=== PATIENT | female | born 1945 | race Caucasian/White ===

== ENCOUNTER 2016-10-01 20:13 | Emergency (ER) | payer MEDICARE ==
[~2016-10-01 20:13] MED LIST: ALFALFA PO; ASA CHILDREN'S81 MG PO; B COMPLEX1 EACH PO; CLOPIDOGREL75 MG PO; LECITHIN PO; NITROGLYCERIN0.4 MG PO; NUTRIFERON PO; OSTEO MATRIX PO; PLAVIX75 MG PO; PRAVASTATIN PO; TYLENOL PO; TYLENOL325 MG PO; ULTRAM50 MG PO; VITAMIN C PO; VITAMIN D3 PO; VITAMIN K PO; ZINC PO; [UNRECOGNIZED DRUG - OTHER] PO
--- NOTE | 2016-10-02 03:47 | ER ---
ADMIT: 10/01/2016 RM/LOC: ER [facility] MR#: [id number] [facility] [address] [place], [place] [id number] [address] [place] [address] Emergency Room Report SEX: F AGE: 71 : 1945 DATE: 10/01/2016 The patient is a 71-year-old female with known coronary artery disease, hypertension, and noncompliance with low-sodium diet. States that since being placed on generic Benicar, her blood pressure has been labile though she readily admits that she is not following a low-sodium diet. Continues to exercise regularly with good exercise tolerance. Denies any chest pain, shortness of breath, nausea, diaphoresis with activity. Tonight, she noted that her blood pressure was elevated and she had some left arm discomfort. No chest pain. Exam remarkable for nontoxic, afebrile, obviously anxious female with labile blood pressure. Otherwise, benign exam. Given Xanax 0.25 mg sublingual with marked improvement in blood pressure and exercise tolerance throughout the department. Walking was well with no significant blood pressure rise. 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 Chest x-ray unremarkable. Normal CK-MB and troponin. Negative D-dimer, BNP, lactic acid, and CRP. Recommend Xanax 0.25 mg sublingual p.r.n. Adherence to low-sodium diet. Follow up Dr. Kirk concerning ongoing blood pressure management and Dr. Gates for ongoing cardiac management. Jeff Lowe MD/ marquise JOB #: [id number] CC: Jeff Lowe MD, Attending Physician Les Kirk DO, Family Physician
== END 2016-10-01 22:00 | disposition home or self-care (01) ==
LOC: ER 20:13
DX: I10 Essential (primary) hypertension (principal); R07.89 Other chest pain; I25.10 Atherosclerotic heart disease of native coronary artery without angina pectoris; E78.5 Hyperlipidemia, unspecified; Z95.5 Presence of coronary angioplasty implant and graft; Z98.890 Other specified postprocedural states; Z79.82 Long term (current) use of aspirin; Z79.899 Other long term (current) drug therapy; Z88.1 Allergy status to other antibiotic agents; Z88.0 Allergy status to penicillin; Z88.2 Allergy status to sulfonamides; Z88.6 Allergy status to analgesic agent; Z88.8 Allergy status to other drugs, medicaments and biological substances; Z91.11 Patient's noncompliance with dietary regimen; Z87.891 Personal history of nicotine dependence